=== PATIENT | male | born 1950 | race Caucasian/White ===

== ENCOUNTER 2017-05-08 11:50 | Emergency (ER) | payer OTHER, MEDICARE ==
[2017-05-08 11:55] VITALS: BP 128/68; PULSE 77; TEMP 98; BMI 21.2
--- NOTE | 2017-05-08 12:01 | PDOC ---
History of Present Illness - General Chief Complaint: Bite Stated Complaint: TICK BITE Time Seen by Provider: 05/08/17 12:00 - History of Present Illness Initial Comments: 05/08/17 12:39 Chief complaint: Tick bite History of present illness: Patient removed a tick from his left leg today. It appeared to be engorged. It was probably present for around 24-48 hours. He has a history of treatment for Lyme disease many years ago, with positive blood tests at that time. Review of systems: Denies fever/chills, chest pain, shortness of breath, abdominal pain, nausea, vomiting, diarrhea, muscle aches or joint aches, joint inflammation, URI symptoms, sore throat, cough. Past medical history: CABG, no active heart disease. Prostate cancer on Lupron. Social/family history reviewed and noncontributory Physical exam: Alert and oriented 3, well-developed well-nourished, no acute distress, cheerful and cooperative Afebrile, vital signs normal HEENT clear Neck supple without bruit mass or nodes Chest clear CV regular without murmur rub or gallop Abdomen benign Neurological intact 5 mm papule at the site of tick removal, erythematous, left lateral knee. No other rash. Impression: Tick bite, probable deer tick, engorged, no sign of Lyme disease as yet Plan: Baseline Lyme titer, repeated 4 weeks, prophylactic antibiotics as directed. Advised to see his primary physician immediately if he develops a rash or flulike symptoms, muscle or joint pains or joint inflammation. Past History - Past Medical History Allergies/Adverse Reactions: Allergies Allergy/AdvReac Type Severity Reaction Status Date / Time No Known Allergies Allergy Verified 05/08/17 11:50 Home Medications: Ambulatory Orders Doxycycline Hyclate [Vibratab -] 2 tab PO ONCE #2 tablet 05/08/17 Leuprolide Acetate [Lupron 1Mg-] 1 mg SQ ASDIR 05/08/17 Cardiac Disorders: Yes (bypass 9 years ago on toprol) - Surgical History Cardiac Surgery: Yes (bypass 9 years ago) - Psycho/Social/Smoking Cessation Hx Anxiety: No Suicidal Ideation: No Smoking History: Never smoked Have you smoked in the past 12 months: No Information on smoking cessation initiated: No Hx Alcohol Use: No Drug/Substance Use Hx: No Substance Use Type: None *Physical Exam - Vital Signs Last Vital Signs Temp Pulse Resp BP Pulse Ox 98 F 77 20 128/68 100 05/08/17 11:50 05/08/17 11:50 05/08/17 11:50 05/08/17 11:50 05/08/17 11:50 *DC/Admit/Observation/Transfer Diagnosis at time of Disposition: Tick bite Qualifiers: Encounter type: initial encounter Qualified Code(s): W57.XXXA - Bitten or stung by nonvenomous insect and other nonvenomous arthropods, initial encounter - Discharge Dispostion Disposition: HOME Condition at time of disposition: Stable Admit: No - Prescriptions Prescriptions: Doxycycline Hyclate [Vibratab -] 2 tab PO ONCE #2 tablet - Patient Instructions Printed Discharge Instructions: DI for Insect Bites and Stings Additional Instructions: Recheck immediately primary care physician if you develop a rash, especially one that looks like a bull's-eye with a red ring and central clearing. Also if there are flulike symptoms including fever/chills, muscle or joint pains or inflammation. Repeat your blood test in 4 weeks.
== END 2017-05-08 12:41 | disposition home or self-care (01) ==
LOC: FER 11:50
DX: S80.862A Insect bite (nonvenomous), left lower leg, initial encounter (principal); W57.XXXA Bitten or stung by nonvenomous insect and other nonvenomous arthropods, initial encounter; Y93.89 Activity, other specified; Y92.9 Unspecified place or not applicable; Z95.1 Presence of aortocoronary bypass graft
CPT/HCPCS: 36415; 86618; 99281-25

== ENCOUNTER 2017-05-20 10:39 | Emergency (ER) | payer OTHER, MEDICARE ==
[2017-05-20 10:49] VITALS: BP 103/66; PULSE 60; TEMP 98.1; BMI 18.6
--- NOTE | 2017-05-20 11:05 | PDOC ---
Attending Attestation - Resident Resident Name: José Miguel Steele - ED Attending Attestation I have performed the following: I have examined & evaluated the patient, The case was reviewed & discussed with the resident, I agree w/resident's findings & plan, Exceptions are as noted - HPI HPI: 05/20/17 11:04 This is a 67 yo M h/o Prostate Cancer, CABG s/p head trauma While running at the train station [place] the train, he tripped, fell forward , struck his head No LOC No amnesia Pt has forehead hematoma and nasal trauma Pt denies use of anti coagulants 05/20/17 11:06 - Physicial Exam PE: 05/20/17 11:25 On examination: left forehead abrasions Nasal bridge swollen, small abrasion above nasal bridge Epistaxis stopped RRR CTA b/l No abd tenderness Well healed surgical scar chest - Medical Decision Making 05/20/17 11:05 Will do: Head CT Facial bone CT Update Tetanus Pain control Wound care Discharge to home 05/20/17 11:26 I have had a long conversation with this patient re: the reasons I think a CT is important The patient is refusing CT due to fears about radiation I have explained that given his head trauma, he runs a risk of intracranial hemorrhage which can be demonstrated on a CT scan He is also refusing Boostrix Pt explained the reasons this is important Pt is going to leave He was asked to return to the ER for persistent or worsening headache, weakness , numbness, vision changes Return to the ER for any other concerns or complaints Discharge Disposition - Diagnosis Facial trauma Qualifiers: Encounter type: initial encounter Qualified Code(s): S09.93XA - Unspecified injury of face, initial encounter - Discharge Dispostion Disposition: HOME Condition at time of disposition: Stable Admit: No - Referrals - Patient Instructions Printed Discharge Instructions: DI for Closed Head Injury, DI for Postconcussion Syndrome Additional Instructions: Return to ED if you experience loss of consciousness, nausea, vomiting, severe headache, change in vision. Print Language: LUXEMBOURGER - Post Discharge Activity
--- NOTE | 2017-05-20 11:20 | PDOC ---
History of Present Illness - General Chief Complaint: Injury Stated Complaint: TRIP&FALL Time Seen by Provider: 05/20/17 10:41 - History of Present Illness Initial Comments: 05/20/17 12:05 67 yo M with h/o CABG, Prostate Ca., and Nasal fracture who presents with facial trauma. Pt. arrived EMS following facial trauma 2/2 fall. He [place] 0950 when he tripped and landed on his left knee, left sided forehead, and nose. He denies LOC, but reports SOLORZANO, and dizziness following the fall. Denies N/V, neck pain/stiffness, SOB, airway compromise, diplopia, vision change, tinnitus, seizures, or back pain. Denies left knee pain , joint pain, or joint deformity. Past History - Past Medical History Allergies/Adverse Reactions: Allergies Allergy/AdvReac Type Severity Reaction Status Date / Time No Known Allergies Allergy Verified 05/20/17 10:40 Home Medications: Ambulatory Orders Leuprolide Acetate [Lupron 1Mg-] 1 mg SQ ASDIR 05/08/17 Cardiac Disorders: Yes (CAD) Disorders: Yes (PROSTATE) - Surgical History Cardiac Surgery: Yes - Psycho/Social/Smoking Cessation Hx Anxiety: No Suicidal Ideation: No Smoking History: Never smoked Have you smoked in the past 12 months: No Information on smoking cessation initiated: No Hx Alcohol Use: (occasional) Drug/Substance Use Hx: No Substance Use Type: None Review of Systems - Review of Systems Comments:: 05/20/17 12:09 GENERAL/CONSTITUTIONAL: No fever or chills. No weakness. HEAD, EYES, EARS, NOSE AND THROAT: No change in vision. No ear pain or discharge. No sore throat. CARDIOVASCULAR: No chest pain or shortness of breath RESPIRATORY: No cough, wheezing, or hemoptysis. GASTROINTESTINAL: No nausea, vomiting, diarrhea or constipation. GENITOURINARY: No dysuria, frequency, or change in urination. MUSCULOSKELETAL: No joint or muscle swelling or pain. No neck or back pain. SKIN: No rash NEUROLOGIC + headache,+ dizziness. No vertigo, loss of consciousness, or change in strength/sensation. ENDOCRINE: No increased thirst. No abnormal weight change HEMATOLOGIC/LYMPHATIC: No anemia, easy bleeding, or history of blood clots. ALLERGIC/IMMUNOLOGIC: No hives or skin allergy. *Physical Exam - Vital Signs Last Vital Signs Temp Pulse Resp BP Pulse Ox 98.1 F 60 18 103/66 98 05/20/17 10:40 05/20/17 10:40 05/20/17 10:40 05/20/17 10:40 05/20/17 10:40 - Physical Exam Comments: 05/20/17 12:16 GENERAL: Awake, alert, and fully oriented, in no acute distress. HEAD: No signs of trauma, normocephalic, atraumatic. Absent scalp laceration EYES: PERRLA, EOMI, sclera anicteric, conjunctiva clear. Absent teardrop sign ENT: + abrasion above left brow. + left sided septal deviation. + blood in posterior nasopharynx. + blood in nares. tympanic membranes intact. Absent blood in ear canal. Absent sinus crepitus. Auricles normal inspection, hearing grossly normal, nares patent, absent septal hematoma, absent nasal perforation oropharynx clear without exudates. Absent soft/hard palate injury, absent tongue laceration or fragmented teeth. Moist mucosa NECK: Normal ROM, supple, no lymphadenopathy, JVD, or masses LUNGS: No distress, speaks full sentences, clear to auscultation bilaterally HEART: Regular rate and rhythm, normal S1 and S2, no murmurs, rubs or gallops, peripheral pulses normal and equal bilaterally. ABDOMEN: Soft, nontender, normoactive bowel sounds. No guarding, no rebound. No masses EXTREMITIES: Normal inspection, Normal range of motion, no edema. No clubbing or cyanosis. Knee Exam: + suprapatellar abrasion. Normal passive and active range of motion. Absent bony deformity. Negative anterior/posterior drawer sign. Normal joint laxity BL. Absent effusion/echhmyosis. Absent joint line tenderness. adequate gait. ambulation without difficulty. NEUROLOGICAL: Cranial nerves II through XII grossly intact. Normal speech, normal gait, no focal sensorimotor deficits SKIN: Warm, Dry, normal turgor, no rashes or lesions noted. Medical Decision Making - Medical Decision Making 05/20/17 12:28 67 yo M with h/o nasal fracture, prostate ca. and CABG who presents with facial trauma. Pt facial trauma 2/2 fall. Reports SOLORZANO, and dizziness following fall, but denies LOC. Pt. refuses CT imaging head/sinus d/t radiation exposure concerns. After explaining risk/benefit of CT imaging, potential of cerebral hemorrhage, and despite medical advice he continually refuses CT imaging. Based on physical exam there is low suspicion for orbital fracture, septal hematoma, or mandible fracture. ED course: Counseled pt. on signs and symptoms of hematoma or hemorrhage and potential return to ED. Pt. Refuses CT imaging head/sinus Pt. refuses Tetanus Vaccine *DC/Admit/Observation/Transfer Diagnosis at time of Disposition: Facial trauma Qualifiers: Encounter type: initial encounter Qualified Code(s): S09.93XA - Unspecified injury of face, initial encounter - Discharge Dispostion Disposition: HOME Condition at time of disposition: Stable Admit: No - Patient Instructions Printed Discharge Instructions: DI for Closed Head Injury, DI for Postconcussion Syndrome Additional Instructions: Return to ED if you experience loss of consciousness, nausea, vomiting, severe headache, change in vision. Print Language: KYRGYZ - Attestations Physician Attestion: 05/20/17 11:20 I, Dr. José Miguel Steele, attest that this document has been prepared under my direction and personally reviewed by me in its entirety. I further attest, that it accurately reflects all work, treatment, procedures and medical decision -making performed by me.
== END 2017-05-20 12:00 | disposition home or self-care (01) ==
LOC: FER 10:39
DX: S09.93XA Unspecified injury of face, initial encounter (principal); W18.39XA Other fall on same level, initial encounter; Y93.02 Activity, running; Y92.410 Unspecified street and highway as the place of occurrence of the external cause
CPT/HCPCS: 99283-25

== ENCOUNTER 2018-05-17 13:30 | Emergency (ER) | payer OTHER, MEDICARE ==
[2018-05-17 13:38] VITALS: BP 103/67; PULSE 65; TEMP 98.3; BMI 21.4
--- NOTE | 2018-05-17 13:47 | PDOC ---
History of Present Illness - General Chief Complaint: Bite Stated Complaint: RED SPOT ON RIGHT GREAT TOE POSSIBLE TICK BITE Time Seen by Provider: 05/17/18 13:34 History Source: Patient Exam Limitations: No Limitations - History of Present Illness Initial Comments: 05/17/18 13:48 Mr Tai is a 68 yo M with a h/o CAD s/p CABG x 2, h/o Lyme disease who presents to the ER for evaluation of his right great toe Pt [place] the [place], on [place] 4 days ago He noted a red spot on the dorsum of his great toe No pain No fevers No pruritis No targetoid lesion No tic noted Pt was concerned because he previously had Lyme disease PMH: as above PSH: as above Meds: ALL: NKDA social: Denies tobacco or drug use GENERAL/CONSTITUTIONAL: No: fever, chills . CARDIOVASCULAR: No: chest pain, lightheadedness RESPIRATORY: No: cough, shortness of breath GASTROINTESTINAL: No: nausea, vomiting, diarrhea, abdominal pain GENITOURINARY: No: dysuria, hematuria MUSCULOSKELETAL: No: back pain SKIN: Yes: Red skin on great toe No: lesions, pallor, rash or easy bruising. NEUROLOGIC: No: headache, vertigo, paresthesias, weakness PE: GENERAL: The patient is in no acute distress. HEAD: Normal EYES: PERRLA, EOMI, sclera anicteric, conjunctiva clear. ENT: Ears normal, nares patent, oropharynx clear without exudates. Moist mucous membranes. NECK: Normal range of motion, supple without lymphadenopathy, JVD, or masses. LUNGS: Breath sounds equal, clear to auscultation bilaterally. No wheezes, and no crackles. HEART:Regular rate and rhythm, normal S1 and S2 without murmur, rub or gallop. ABDOMEN: Soft, nontender, normoactive bowel sounds. No guarding, no rebound. No masses palpable. EXTREMITIES: Normal range of motion, no edema NEUROLOGICAL: Cranial nerves II through XII grossly intact. Normal speech. No focal neurological deficits. MUSCULOSKELETAL: Back non-tender to palpation SKIN: 2 mm spot noted on dorsum of right grat toe, near nail bed, another spot is seen medial to this No swelling No drainage No pain Past History - Past Medical History Allergies/Adverse Reactions: Allergies Allergy/AdvReac Type Severity Reaction Status Date / Time No Known Allergies Allergy Verified 05/17/18 13:31 Home Medications: Ambulatory Orders NK [No Known Home Medication] 05/17/18 Cardiac Disorders: Yes (bypass 9 years ago on toprol) COPD: No Disorders: Yes (PROSTATE) Other medical history: LYMES - Surgical History Cardiac Surgery: Yes - Suicide/Smoking/Psychosocial Hx Smoking History: Never smoked Have you smoked in the past 12 months: No Information on smoking cessation initiated: No Hx Alcohol Use: Yes (SOCIAL) Drug/Substance Use Hx: No Substance Use Type: None *Physical Exam - Vital Signs Last Vital Signs Temp Pulse Resp BP Pulse Ox 98.3 F 65 16 103/67 100 05/17/18 13:31 05/17/18 13:31 05/17/18 13:31 05/17/18 13:31 05/17/18 13:31 Medical Decision Making - Medical Decision Making 05/17/18 13:52 Pt presents with spot on great toe that he is concerned could be from a tick He never saw a tick attached to the skin No target lesion Based on IDSA guidelines, pt does not require prophylaxis Follow up with PMD 05/17/18 13:59 I have reviewed IDSA guidelines with this patient multiple times He is insisting that he get antibiotic Will give Doxy 200mg once *DC/Admit/Observation/Transfer Diagnosis at time of Disposition: Skin spots, red - Discharge Dispostion Disposition: HOME Condition at time of disposition: Stable Decision to Admit order: No - Referrals - Patient Instructions Printed Discharge Instructions: DI for Rash - Post Discharge Activity
[2018-05-17] MEDS ORDERED: DOXYCYCLINE HYCLATE 100 MG CAPSULE PO ONE ×2 (13:58→14:03)
== END 2018-05-17 14:07 | disposition home or self-care (01) ==
LOC: FER 13:30
DX: R23.8 Other skin changes (principal); I25.10 Atherosclerotic heart disease of native coronary artery without angina pectoris; Z95.1 Presence of aortocoronary bypass graft
CPT/HCPCS: 99281-25

== ENCOUNTER 2019-06-05 15:17 | Emergency (ER) | payer OTHER, MEDICARE | END 2019-06-05 16:42 | disposition home or self-care (01) | LOC: FER 15:17 ==

== ENCOUNTER 2020-10-05 22:14 | Emergency (ER) | payer OTHER, MEDICARE ==
[2020-10-05 22:21] VITALS: BP 125/79; PULSE 67; TEMP 98; BMI 21.1
[2020-10-05] MEDS ORDERED: DIPHTH,PERTUSS(ACELL),TET 0.5 ML DISP.SYRIN IM ONE ×2 (23:16→23:27)
[2020-10-05] MEDS ORDERED: AMOX TR/POT CLAV 875MG/125MG TABLETS (FP) PO ONE (23:17)
[2020-10-05] MEDS ORDERED: AMOX TR/POT CLAV 875MG/125MG TABLETS (FP) ONE (23:27)
[2020-10-05] MEDS ORDERED: ACETAMINOPHEN 500 MG TABLET (FP) ONE (23:43)
[2020-10-05] MEDS ORDERED: OXYMETAZOLINE 0.05% NASAL SOLUTION 15 ML BOTTLE NS ONE (23:46)
== END 2020-10-06 00:39 | disposition home or self-care (01) ==
LOC: FER 22:14
PROC: 3E0234Z Introduction of Serum, Toxoid and Vaccine into Muscle, Percutaneous Approach (ICD-10-PCS; principal; 2020-10-05)
DX: S09.93XA Unspecified injury of face, initial encounter (principal); S61.412A Laceration without foreign body of left hand, initial encounter; S61.511A Laceration without foreign body of right wrist, initial encounter; S01.81XA Laceration without foreign body of other part of head, initial encounter
CPT/HCPCS: 70450-TC; 70486-TC; 90715; 99284-25

== ENCOUNTER 2020-10-11 12:55 | Emergency (ER) | payer OTHER, MEDICARE ==
[2020-10-11 13:03] VITALS: BP 115/64; PULSE 78; TEMP 98.1
== END 2020-10-11 13:27 | disposition home or self-care (01) ==
LOC: FER 12:55
DX: Z48.02 Encounter for removal of sutures (principal)
CPT/HCPCS: 99281-25

== ENCOUNTER 2020-10-15 16:54 | Emergency (ER) | payer OTHER, MEDICARE ==
[2020-10-15 17:04] VITALS: BP 110/66; PULSE 84; TEMP 98.5; BMI 20.3
== END 2020-10-15 17:21 | disposition home or self-care (01) ==
LOC: FER 16:54
DX: Z48.02 Encounter for removal of sutures (principal)
CPT/HCPCS: 99281-25

== ENCOUNTER 2022-03-12 15:27 | Emergency (ER) | payer OTHER, MEDICARE ==
[2022-03-12 16:35] VITALS: BMI 21.5
[2022-03-12 16:41] LABS: INR 1.13 (0.83-1.09)
[2022-03-12 16:50] LABS: ALBUMIN 4.1 g/dl (3.4-5.0); BILIRUBIN,TOTAL 0.6 mg/dl (0.2-1); CALCIUM 9.4 mg/dl (8.5-10); MAGNESIUM 2.1 mg/dL (1.8-2.4); TOT PROT 7.2 g/dl (6.4-8.2)
[2022-03-12 16:51] LABS: HEMATOCRIT 29.5 % (35.4-49); HEMOGLOBIN 10.5 G/dL (11.7-16.9); MCH 31.5 pg (25.7-33.7); MCHC 35.4 g/dl (32.0-35.9); MEAN CELL VOLUME 88.8 fl (80-96); MEAN PLT VOLUME 7.7 fl (7.5-11.1); PLATELET COUNT 168.6 10^3/uL (134-434); RBC 3.32 10^6/uL (4.00-5.60); RDW 13.6 % (11.9-15.9); WHITE BLOOD COUNT 8.3 10^3/uL (4.0-10.8)
[2022-03-12] MEDS ORDERED: SODIUM CHLORIDE 0.9% 500 ML INFUS.BAG IV ONE (16:58)
[2022-03-12 17:36] LABS: PLATELET ESTIMATE ADEQUATE
[2022-03-12] MEDS ORDERED: BEBTELOVIMAB (EUA) 175 MG/2 ML VIAL IVPUSH ONE (17:41)
[2022-03-12] MEDS ORDERED: FAMOTIDINE 20 MG/50 ML IVPB 20 MG/50 ML MG IVPB ONE ×2 (18:29→18:30)
[2022-03-12 19:43] VITALS: BP 120/70; PULSE 64; TEMP 99
== END 2022-03-12 19:50 | disposition home or self-care (01) ==
LOC: FER 15:27
PROC: 3E033GC Introduction of Other Therapeutic Substance into Peripheral Vein, Percutaneous Approach (ICD-10-PCS; principal; 2022-03-12)
DX: U07.1 COVID-19 (principal)
CPT/HCPCS: 36415; 71045-TC-FY; 80053; 82550; 83735; 84484; 85025; 85610; 85730; 93005; 96365; 96375; 99285-25; M0222; Q0222